=== PATIENT | male | born 1945 | race Caucasian/White ===

== ENCOUNTER 2020-11-11 09:26 | Outpatient (RCR) | payer MEDICARE, SELFPAY | END 2021-03-04 12:17 | disposition home or self-care (01) | LOC: HO.WCC 09:26 | PROVIDERS: Visit Provider Surgery | DX: I87.313 Chronic venous hypertension (idiopathic) with ulcer of bilateral lower extremity (principal); L97.822 Non-pressure chronic ulcer of other part of left lower leg with fat layer exposed; L97.812 Non-pressure chronic ulcer of other part of right lower leg with fat layer exposed; L12.0 Bullous pemphigoid | CPT/HCPCS: 10060; 11042; 11045; 11106; 88304; 97597; 99212; 99213; 99214; 99215 ==

== ENCOUNTER 2021-01-25 15:26 | Outpatient (REF) | payer MEDICARE, SELFPAY ==
[2021-01-25 17:06] LABS: Hemoglobin 11.4 g/dl (14.0-18.0); Red Cell Distribution Width 14.1 % (11.0-16.0)
[2021-01-25 17:08] LABS: Hematocrit 36.6 % (42-52); Mean Corpuscular HGB Conc 31.1 g/dl (31.0-36.0); Mean Corpuscular Hemoglobin 31.4 pg (27.0-33.0); Mean Corpuscular Volume 100.8 fL (80-98); PLT CLUMP 1; Red Blood Count 3.63 X10*6/uL (4.60-5.80)
[2021-01-25 17:11] LABS: Glucose Urine UA NEG (NEG); Leukocyte Esterase Urine NEG (NEG); Nitrite Urine NEG (NEG); PH 5.5 (5.0-8.0); UACC Culture Trigger NO; Urine Blood 2+ (NEG); Urine Ketones NEG (NEG); Urine Protein NEG (NEG-TRACE)
[2021-01-25 17:12] LABS: PLT ABN DIST 1
[2021-01-25 17:15] LABS: Appearance Urine CLEAR; Color Urine YELLOW
[2021-01-25 17:37] LABS: Alanine Aminotransferase 12 U/L (0-40); Albumin Level 3.4 g/dL (3.5-5.0); Alkaline Phosphatase 90 U/L (39-117); Anion Gap 11 (12-20); Aspartate Amino Transferase 18 U/L (5-37); Bilirubin Total < 0.2 mg/dL (0.0-1.0); Blood Urea Nitrogen 15 mg/dL (9-16); Calcium 8.1 mg/dL (8.4-10.2); Carbon Dioxide 30 mmol/L (22-29); Chloride 108 mmol/L (96-108); Estimated Glomerular Filt Rate > 60; Glucose Random 126 mg/dL (60-115); Potassium 4.3 mmol/L (3.3-5.1); Sodium 145 mmol/L (135-145); Total Protein 6.8 g/dL (6.5-8.0)
[2021-01-25 17:50] LABS: Bacteria Urine TRACE /LPF; Squamous Epithelial Cell Urine TRACE /LPF; WBC Urine 0-2 /HPF (0-4)
[2021-01-25 17:58] LABS: Prostate Specific Antigen < 0.05 ng/mL (<0.05-4.0); White Blood Count 4.6 X10*3/uL (4.8-10.8)
[2021-01-25 18:00] LABS: Mean Platelet Volume 12.9 fL (9.4-12.4)
== END 2021-01-25 15:27 | disposition home or self-care (01) ==
LOC: HO.MANLDS 15:26
PROVIDERS: PCP Internal Medicine; Visit Provider Internal Medicine
DX: Z12.5 Encounter for screening for malignant neoplasm of prostate (principal); C71.1 Malignant neoplasm of frontal lobe; C61 Malignant neoplasm of prostate; R32 Unspecified urinary incontinence; I10 Essential (primary) hypertension
CPT/HCPCS: 36415; 80053; 81001; 84153; 85027